=== PATIENT | male | born 1980 | race Caucasian/White ===

== ENCOUNTER 2024-01-08 17:01 | Emergency (ER) | payer SELFPAY ==
[~2024-01-08] VITALS: Ht 175.3 cm; Wt 68.0 kg
[2024-01-08 17:01] VITALS: BP_SYST 125; PULSE 89; RESP 18; TEMP 98.1; O2SAT 99
[2024-01-08] MEDS: DIPHTH,PERTUSS(ACELL),TET VAC 0.5 ML VIAL (Tdap) I.M. ONE (18:15)
[2024-01-08] MEDS: IBUPROFEN 600 MG TABLET PO ONE (18:15)
[2024-01-08 20:00] VITALS: BP_SYST 125; PULSE 89; RESP 18; TEMP 98.1; O2SAT 99
[2024-01-08] MEDS: cephALEXin 500 MG CAPSULE PO ONE (20:03)
[2024-01-08] MEDS ORDERED: IBUP-1969 PO (20:07)
[2024-01-08] MEDS ORDERED: CEPH-548 PO (20:07)
== END 2024-01-08 20:14 | disposition home or self-care (01) ==
LOC: SED 17:01
DX: S61.431A Puncture wound without foreign body of right hand, initial encounter (principal); Z23 Encounter for immunization; W29.4XXA Contact with nail gun, initial encounter; Y93.89 Activity, other specified; Y92.89 Other specified places as the place of occurrence of the external cause; Y99.8 Other external cause status
CPT/HCPCS: 90715; 99283